=== PATIENT | female | born 1950 | race Caucasian/White ===

== ENCOUNTER → 2016-11-15 | Outpatient (CLI) | payer OTHER ==
[2016-11-15 11:58] LABS: BASO % 0.4 % (0.0-1.0); EOS # 0.1 K/mm3 (0.0-0.50); EOS % 1.3 % (0.0-3.0); LARGE UNSTAINED CELL # 0.1 K/mm3 (0.0-0.4); LYMPH % 30.7 % (24.0-44.0); MEAN CORPUSCULAR HEMOGLOBIN 29.3 pg (27.0-33.0); MEAN CORPUSCULAR HGB CONC 32.8 g/dl (32.0-36.5); MEAN CORPUSCULAR VOLUME 89.6 fl (80.0-96.0); MONO # 0.4 K/mm3 (0.0-0.8); MONO % 6.4 % (0.0-5.0); NEUTROPHILS # 3.9 K/mm3 (1.8-7.7); NEUTROPHILS % 59.2 % (36.0-66.0); PLATELET COUNT, AUTOMATED 359 k/mm3 (150-450); RED CELL DISTRIBUTION WIDTH 12.5 % (11.5-14.5); WHITE BLOOD COUNT 6.5 K/mm3 (4.0-10.0)
[2016-11-15 12:24] LABS: ALBUMIN 3.9 GM/DL (3.2-5.2); PERCENT SATURATION 25.8 % (13.2-37.4)
== END ==
LOC: M LAB 10:46
PROVIDERS: ATTEND Orthopaedic Surgery
DX: Z01.812 Encounter for preprocedural laboratory examination (principal); D64.9 Anemia, unspecified; M25.511 Pain in right shoulder; M16.11 Unilateral primary osteoarthritis, right hip

== ENCOUNTER → 2023-04-03 | Outpatient (CLI) | payer MEDICARE, OTHER | LOC: M RAD 15:28 | PROVIDERS: ATTEND Internal Medicine | DX: N31.2 Flaccid neuropathic bladder, not elsewhere classified (principal) ==

== ENCOUNTER 2024-02-01 10:26 | Day surgery (SDC) | payer MEDICARE, BC, OTHER ==
[~2024-02-01] VITALS: Ht 162.6 cm; Wt 61.2 kg
[~2024-02-01 10:26] MED LIST: ACE65ERTAB PO; BACL1TAB9 PO; CALCTAB89 PO; CO Q200C10 PO; DULO1CAP5 PO; DULO1CAP6 PO; HYDR-643 PO; ROSU10TA61 PO; TRAM50TA2 PO; ZOLP5TAB PO
[2024-02-01] MEDS: NS 1,000 ML IV ONE (11:59)
[2024-02-01] MEDS ORDERED: propofoL 200 MG/20 ML VIAL As Ordered ONE (12:19)
[2024-02-01] MEDS ORDERED: LIDOCAINE 2% 100MG/5ML SDV (FOR ANES.) As Ordered ONE (12:19)
[2024-02-01 13:18] VITALS: BP 115/61; TEMP 97.1; O2SAT 98
== END 2024-02-01 13:32 | disposition home or self-care (01) ==
LOC: M OPP 10:26
PROVIDERS: ATTEND Surgery
DX: Z12.11 Encounter for screening for malignant neoplasm of colon (principal); Z12.12 Encounter for screening for malignant neoplasm of rectum; D12.4 Benign neoplasm of descending colon; E78.00 Pure hypercholesterolemia, unspecified; Z79.899 Other long term (current) drug therapy; Z88.2 Allergy status to sulfonamides; Z88.8 Allergy status to other drugs, medicaments and biological substances

== ENCOUNTER → 2024-08-19 | Outpatient (CLI) | payer MEDICARE, BC, OTHER ==
[~2024-08-19] MED LIST changes: +PROHANCE 279.3MG/ML 15ML VIAL ONE
== END ==
LOC: M PLAIMG 12:23
PROVIDERS: ATTEND Nurse Practitioner Family
DX: G89.29 Other chronic pain (principal); M54.59 Other low back pain
CPT/HCPCS: 72158; A9576